=== PATIENT | female | born 2005 | race Hispanic/Latino ===

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

== ENCOUNTER 2025-04-14 02:12 | Emergency (ER) | payer BC, MEDICAID ==
[~2025-04-14] VITALS: Ht 149.9 cm; Wt 48.7 kg
[~2025-04-14 02:12] MED LIST: FAMO-136 PO
--- NOTE | 2025-04-14 02:17 | NUR ---
UA CUP PROVIDED
[2025-04-14 02:58] LABS: IMMATURE GRANULOCYTE ABSOLUTE 0.01 K/uL (0-1); NUCLEATED RED BLOOD CELLS 0.0 % (0.0-0.19); PLATELET COUNT (AUTO) 263 K/uL (130-400); RED BLOOD CELL COUNT(AUTO) 4.28 MIL/uL (4.00-5.50); RED CELL DISTRIBUTION WIDTH 13.9 % (11.0-15.5); WHITE BLOOD COUNT (AUTO) 7.7 K/uL (4.8-10.8)
--- NOTE | 2025-04-14 02:59 | ERN ---
General Chief Complaint: Abdominal Pain Stated Complaint: ABD PAIN Time Seen by MD: 02:17 Source: patient, family History of Present Illness Initial Comments 19-year-old healthy female comes in with emesis x4 associated with chills and pain in her lower abdomen. The pain started a week ago but she comes in today because of intractable vomiting. She states no changes in urination or defecation. Allergies: Coded Allergies: No Known Drug Allergies (Unverified Allergy, Unknown, 05/06/23) Home Meds Active Scripts Famotidine (Pepcid) 20 Mg Tablet, 20 MG PO DAILY, #30 TAB Prov:RAVEN GALDAMEZ MD 05/06/23 Past Medical History Past Medical History: No Pertinent History Past Surgical History: None Family History Family History: Negative Social History Social History: Negative Female( History) LMP: Apr 06, 2025 Constitutional: (+) chills EENTM: (-) eye pain, (-) blurred vision, (-) tearing, (-) double vision, (-) ear pain, (-) ear discharge, (-) nose pain, (-) nose congestion, (-) throat pain, (-) Throat swelling, (-) mouth pain, (-) tooth pain, (-) mouth swelling, (-) other documentation Respiratory: (-) cough, (-) orthopnea, (-) short of breath, (-) stridor, (-) wheezing, (-) other documentation Cardiovascular: (-) chest pain, (-) edema, (-) palpitations, (-) syncope, (-) dyspnea on exertion, (-) other documentation Gastrointestinal/Abdominal: (+) nausea, (+) vomiting Genitourinary: (-) vaginal discharge, (-) vaginal bleeding, (-) dysuria, (-) frequency, (-) hematuria, (-) pain, (-) other documentation Musculoskeletal: (-) Neck pain, (-) back pain, (-) Flank Pain, (-) joint pain, (-) joint swelling, (-) muscle pain, (-) muscle stiffness, (-) gout, (-) other documentation Skin: (-) laceration, (-) contusion, (-) abrasion, (-) abscess, (-) rash, (-) change in color, (-) change in hair, (-) change in nails, (-) diaphoresis, (-) dryness, (-) other documentation Physical Exam General Appearance: (+) no apparent distress Orientation: (+) alert, (+) oriented x 3 Head/Face Trauma: No Eye: bilateral eye normal inspection, bilateral eye PERRL, bilateral eye EOMI Ear, Nose, Throat: (+) hearing grossly normal, (+) normal ENT inspection, (+) moist mucous membraine Neck: (+) normal inspection, (+) supple, (+) full range of motion Respiratory: (+) chest non-tender, (+) lungs clear, (+) well ventilated Heart: (+) regular, (+) no gallop, (+) tachycardia Vascular: (+) no edema, (+) normal peripheral pulse Gastrointestinal: (+) soft, (+) non-tender, (+) bowel sound present Results Laboratory and Microbiology Lab and Micro Result Laboratory Tests Test 04/14/25 02:50 04/14/25 03:46 White Blood Count 7.7 K/uL (4.8-10.8) Red Blood Count 4.28 MIL/uL (4.00-5.50) Hemoglobin 12.7 g/dL (12.0-16.0) Hematocrit 38.5 % (36-48) Mean Corpuscular Volume 90.0 fL (80-100) Mean Corpuscular Hemoglobin 29.7 pg (27.0-33.0) Mean Corpuscular Hemoglobin Concent 33.0 g/dL (32.0-36.0) Red Cell Distribution Width 13.9 % (11.0-15.5) Platelet Count 263 K/uL (130-400) Mean Platelet Volume 10.2 fL (7.5-10.5) Immature Granulocyte % (Auto) 0.1 % (0-1) Neutrophils (%) (Auto) 88.0 % (40.0-77.0) H Lymphocytes (%) (Auto) 5.7 % (21.0-51.0) L Monocytes (%) (Auto) 6.1 % (3.0-13.0) Eosinophils (%) (Auto) 0.0 % (0.0-8.0) Basophils (%) (Auto) 0.1 % (0.0-5.0) Neutrophils # (Auto) 6.8 K/uL (1.8-7.7) Lymphocytes # (Auto) 0.4 K/uL (1.0-4.8) L Monocytes # (Auto) 0.5 K/uL (0.1-1.0) Eosinophils # (Auto) 0.00 K/uL (0.00-0.70) Basophils # (Auto) 0.01 K/uL (0.00-0.20) Absolute Immature Granulocyte (auto 0.01 K/uL (0-1) Nucleated Red Blood Cells 0.0 % (0.0-0.19) White Cell Morphology Comment See comments Sodium Level 137 mmol/L (136-145) Potassium Level 3.4 mmol/L (3.5-5.1) L Chloride Level 102 mmol/L (101-111) Carbon Dioxide Level 27 mmol/L (21-32) Blood Urea Nitrogen 18 mg/dL (7-18) Creatinine 0.7 mg/dL (0.5-1.0) Glomerular Filtration Rate Calc 128 mL/min (>90) Random Glucose 105 mg/dL (70-105) Total Calcium 9.2 mg/dL (8.5-10.1) Lipase 43 U/L (16-77) Urine Color LIGHT-YELLOW (YELLOW) Urine Appearance CLEAR (CLEAR) Urine pH 6.5 (5.0-8.0) Urine Specific [place] 1.028 (1.001-1.031) Urine Protein NEGATIVE mg/dL (NEGATIVE) Urine Glucose (UA) NEGATIVE mg/dL (NEGATIVE) Urine Ketones 20 mg/dL (NEGATIVE) H Urine Occult Blood NEGATIVE (NEGATIVE) Urine Nitrate NEGATIVE (NEGATIVE) Urine Bilirubin NEGATIVE mg/dL (NEGATIVE) Urine Urobilinogen 0.2 mg/dL (0.2-1.0) Urine Leukocyte Esterase NEGATIVE [place]/uL Urine RBC 2-5 /HPF (0-1) H Urine WBC 2-5 /HPF (0-1) H Urine Squamous Epithelial Cells FEW /HPF (0-2) Urine Bacteria None /HPF (None Seen) Urine HCG, Qualitative NEGATIVE (NEGATIVE) MDM MDM: Differential diagnosis: UTI, , dehydration, gastroenteritis, food allergy Rationale: Tests considered and ordered secondary to shared decision making include: Previous outside records reviewed: Old ER visits. Risk of complication and/or morbidity or mortality of patient management: None Medications-Per medication reconciliation Need for hospitalization: Patient does meet criteria for hospitalization. Need for emergency major/minor surgery: No There are no social concerns with this patient. Prescription drug management Prescriptions will include symptomatic care Patient's prior external medical records from other ER visits were reviewed by me as indicated. Prior testing and results from previous visits were reviewed. Prior tests were taken into account with medical decision making and resource utilization, independent historian/historians were used to obtain complete medical history. I independently interpreted the test that were performed, results were reviewed by me and considered findings on radiology if ordered. Part of patient's symptoms improved with the GI cocktail. Her laboratory analysis shows a normal chemistry panel and a normal CBC. Her urine had ketones in it but was otherwise normal. I suspect she has a combination of dehydration as well as gastritis. ED Course Orders Procedure Category Date Status Time Vital Signs Per CPOE 04/14/25 Transmitted Routine 02:21 Saline Lock Iv CPOE 04/14/25 Transmitted 02:21 Cbc With Differential LAB 04/14/25 Complete 02:21 Lipase LAB 04/14/25 Complete 02:21 Urinalysis Profile LAB 04/14/25 Complete 02:21 Basic Metabolic Panel LAB 04/14/25 Complete 02:21 ,Urine Test LAB 04/14/25 Complete 02:21 Ondansetron 4mg Inj PHA 04/14/25 Complete (Zofran 4mg Inj) 03:00 Lactated Ringers PHA 04/14/25 Complete 1000ml (Lactated 02:53 Lidocaine Hcl 2% PHA 04/14/25 Complete Viscous (Lidocaine Hcl 03:00 Mag/Alum/Simeth 30ml PHA 04/14/25 Complete (Maalox Plus 30ml) 03:00 Dicyclomine Hcl PHA 04/14/25 Complete (Bentyl 10mg/5ml 03:00 Current Medications Medications (Trade) Dose Ordered Sig/Saundra Route PRN Reason Start Time Stop Time Status Last Admin Dose Admin Al Hydroxide/Mg Hydroxide (MAALox PLUS 30ML) 30 ml ONCE ONCE PO 04/14/25 03:00 04/14/25 03:01 DC 04/14/25 03:28 Dicyclomine HCl (Bentyl 10mg/5ml Syrup) 10 mg ONCE ONCE PO 04/14/25 03:00 04/14/25 03:01 DC 04/14/25 03:28 Lactated Ringer's (Lactated Ringers 1000ml) 1,000 ml BOLUS STAT IV 04/14/25 02:53 04/14/25 02:55 DC 04/14/25 03:20 Lidocaine HCl (Lidocaine HCl 2% Viscous) 10 ml ONCE ONCE PO 04/14/25 03:00 04/14/25 03:01 DC 04/14/25 03:28 Ondansetron HCl (zoFRAN 4MG INJ) 4 mg ONCE ONCE IVP 04/14/25 03:00 04/14/25 03:01 DC 04/14/25 03:28 Vital Signs Date Time Temp Pulse Resp B/P (MAP) Pulse Ox O2 Delivery O2 Flow Rate FiO2 04/14/25 02:52 98.8 77 18 143/66 99 Room Air* 0 21 04/14/25 02:13 98.8 109 18 113/62 100 Room Air DX & DISP Disposition: Discharge Departure Impression: Primary Impression: Gastritis Additional Impressions: Nausea, Dehydration, Ketonuria Condition: Stable Additional Instructions: I suspect your have a combination of gastritis and dehydration. The gastritis can be treated with [id number] medications such as Pepcid or omeprazole. I recommend starting with Pepcid. Please follow-up with her family care doctor if the Pepcid does not relieved her gastritis. You should start feeling better with the fluids I have given you. If you continue to have nausea and vomiting please follow-up with your primary care physician. In his hot [place] whether it is important to stay well hydrated. Please drink enough fluid every day so that your urine runs clear at least once a day. Referrals: TETE THOMAS (PCP) IOANA SHEFFIELD MD Apr 14, 2025 02:59
[2025-04-14 03:14] LABS: CREATININE 0.7 mg/dL (0.5-1.0); GLOMERULAR FILTR. RATE CALC 128.0 mL/min (>90); GLUCOSE,RANDOM 105.0 mg/dL (70-105); SODIUM SERUM 137.0 mmol/L (136-145); UREA NITROGEN, BLOOD 18.0 mg/dL (7-18)
[2025-04-14] MEDS: LACTATED RINGERS 1000ML IV STA (03:20)
[2025-04-14] MEDS: DICYCLOMINE HCL 10 MG/5 ML ML PO ONE (03:28)
[2025-04-14] MEDS: MAG/ALUM/SIMETH 30 ML UDCUP PO ONE (03:28)
[2025-04-14] MEDS: LIDOCAINE HCL 2% VISCOUS 15 ML UDCUP PO ONE (03:28)
[2025-04-14 03:55] LABS: APPEARANCE,URINE CLEAR (CLEAR); GLUCOSE, URINE (UA) NEGATIVE (NEGATIVE); LEUKOCYTE ESTERASE ,URINE NEGATIVE Leu/uL (NEGATIVE); NITRATE,URINE NEGATIVE (NEGATIVE); OCCULT BLOOD,URINE NEGATIVE (NEGATIVE)
[2025-04-14 04:00] LABS: ADD UA MICROSCOPIC YES
[2025-04-14 04:04] LABS: SQUAMOUS EPITHELIAL CELL,UR FEW /HPF (0-2)
[2025-04-14 04:15] LABS: HCG,QUALITATIVE URINE NEGATIVE (NEGATIVE)
[2025-04-14 04:52] VITALS: BP 125/65; PULSE 75; RESP 18; TEMP 98.8; O2SAT 100
== END 2025-04-14 04:53 | disposition home or self-care (01) ==
LOC: EDH 02:12
DX: K29.70 Gastritis, unspecified, without bleeding (principal); R11.0 Nausea; E86.0 Dehydration; R82.4 Acetonuria
CPT/HCPCS: 99284; 96374; 80048; 83690; 85025; 81001; 81025; 36415; J7120; J2405

== ENCOUNTER 2025-06-13 17:23 | Emergency (ER) | payer OTHER, BC ==
[~2025-06-13] VITALS: Ht 147.3 cm; Wt 44.5 kg
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
--- NOTE | 2025-06-13 18:16 | NUR ---
PT JUST RETURNED FROM CT SCAN.
--- NOTE | 2025-06-13 18:26 | NUR ---
PT REFUSED TO TAKE THE TYELNOL HERE STATING SHE WOULD TAKE IT AT HOME
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
[2025-06-13] MEDS ORDERED: KETO10TA2 PO (19:31)
[2025-06-13] MEDS ORDERED: METH-662 PO (19:31)
[2025-06-13 20:20] VITALS: BP 114/68; PULSE 72; RESP 16; TEMP 97.8; O2SAT 100
== END 2025-06-13 20:22 | disposition home or self-care (01) ==
LOC: EDH 17:23
DX: S16.1XXA Strain of muscle, fascia and tendon at neck level, initial encounter (principal); S39.012A Strain of muscle, fascia and tendon of lower back, initial encounter; V89.2XXA Person injured in unspecified motor-vehicle accident, traffic, initial encounter; Y93.89 Activity, other specified; Y92.89 Other specified places as the place of occurrence of the external cause; Y99.8 Other external cause status
CPT/HCPCS: 70450; 72125; 72131; 99284

== ENCOUNTER 2025-06-15 20:28 | Emergency (ER) | payer BC, OTHER ==
[~2025-06-15] VITALS: Ht 147.3 cm; Wt 45.8 kg
[~2025-06-15 20:28] MED LIST changes: +KETO10TA2 PO; +METH-662 PO
[2025-06-15 20:49] LABS: APPEARANCE,URINE CLEAR (CLEAR); GLUCOSE, URINE (UA) NEGATIVE (NEGATIVE); LEUKOCYTE ESTERASE ,URINE 75 Leu/uL (NEGATIVE); NITRATE,URINE NEGATIVE (NEGATIVE); OCCULT BLOOD,URINE LARGE (NEGATIVE)
[2025-06-15 20:51] LABS: ADD UA MICROSCOPIC YES
[2025-06-15 20:54] LABS: SQUAMOUS EPITHELIAL CELL,UR RARE /HPF (0-2)
[2025-06-15 20:56] LABS: HCG,QUALITATIVE URINE NEGATIVE (NEGATIVE)
[2025-06-15] MEDS ORDERED: DOXY100C5 PO (21:07)
[2025-06-15] MEDS ORDERED: ACYC-429 PO (21:07)
--- NOTE | 2025-06-15 21:07 | ERN ---
ED Note History of Present Illness Stated Complaint: C/O PAIN WHEN VOIDING Chief Complaint: Painful Urination Time Seen by MD: 20:34 Time Seen by Midlevel: 20:34 Dictation: The patient is a 20-year-old female with no significant medical history who pre sents to the emergency department with complains of multiple vaginal wounds onset today. Patient reports burning sensation. Denies any vaginal discharge. Reports unprotected sex 3 weeks ago. Denies any other complains. Allergies: Coded Allergies: No Known Drug Allergies (Unverified Allergy, Unknown, 05/06/23) Home Meds Active Scripts Doxycycline Hyclate (Doxycycline Hyclate) 100 Mg Capsule, 1 CAP PO BID for 7 Days, #14 CAP 0 Refills Prov:RAMON TAFOYA [facility] 06/15/25 Acyclovir (Acyclovir) 400 Mg Tablet, 1 TAB PO TID for 10 Days, #30 TAB 0 Refills Prov:RAMON TAFOYA [facility] 06/15/25 Ketorolac Tromethamine (Ketorolac Tromethamine) 10 Mg Tablet, 1 TAB PO TID for pain for 5 Days, #15 TAB 0 Refills Prov:REY MORENO [facility] 06/13/25 Methocarbamol (Robaxin) 750 Mg Tab, 1 TAB PO BID for 10 Days, #20 TAB 0 Refills Prov:REY MORENO [facility] 06/13/25 Famotidine (Pepcid) 20 Mg Tablet, 20 MG PO DAILY, #30 TAB Prov:RAVEN GALDAMEZ MD 05/06/23 Past Medical History Past Medical History: No Pertinent History Surgical History: None Family History: Negative Social History: Negative RN Note Reviewed/Agreed w/PFSH: Yes Review of System Dictation Constitutional: Negative for fever,chills, and weight loss Eyes: Negative for injury, pain,redness, and discharge ENT: Negative for injury,pain or swelling Cardiovascular: Negative for chest pain, palpitations, and edema Respiratory: Negative for shortness of breath, cough, and wheezing, Abdomen/GI: Negative for abdominal pain, nausea, vomiting, diarrhea, and co nstipation Back: Negative for injury and pain : positive for vaginal wounds MS/Extremity: Negative for injury and deformity Skin: Negative for rash, and discoloration Neuro: Negative for headache, weakness, numbness, tingling, and seizure Psych: Negative for suicide ideation, homicidal ideation, and hallucinations Initial Vital Sign VS Vital Signs Date Time Temp Pulse Resp B/P (MAP) Pulse Ox O2 Delivery O2 Flow Rate FiO2 06/15/25 20:30 98.4 75 18 133/83 98 Room Air 06/15/25 21:28 0 21 Physical Exam Dictation Vital Signs reviewed General Appearance: Alert, oriented x 3, no acute distress, well developed, nourished. Head and Face: non-traumatic. Eyes: PERRL, pink conjunctivas, eyelid no trauma, anterior chamber with arcus senilis. Ears: Pinnas intact and no signs of trauma or erythema ear canals clear and no discharge TM no erythema Nose: No discharge, no bleeding. Oropharynx: Mouth normal, tongue pink. pharynx clear,no erythema, tonsils no exudates, no abscesses noted, mucous membrane moist Neck: Supple, non-tender, no thyromegaly, no masses, no JVD, no bruits Breast:Deferred Chest:No tenderness, no crepitus, no paradoxical movement, no retractions Lungs:Clear, well-ventilated, symmetric, no rales, no wheezing, no rhonchi, no stridor, good breath sounds bilaterally Heart: Regular rate, regular rhythm, no murmur, no gallops Vascular: no peripheral edema, Abdomen: Soft, positive bowel sounds, nondistended, no guarding, nontender, no rebound, no masses no hepatomegaly, no splenomegaly, no Jackson's sign, no hernias. Rectal: Deferred Genital: multiple rounded lesions to bilateral labial, no drainage. Neurological: Normal speech, motor function intact, sensory function intact Musculoskeletal: Neck nontender, full range of motion, back nontender, full range of motion, Extremities: nontender, full range of motion Skin: Color pink, dry, no turgor, no rash, no lacerations, no abrasions, no contusions. Lymphatic: Deferred Results (Laboratory/Radiology) Laboratory/Radiology Laboratory Tests Test 06/15/25 20:32 Urine Color YELLOW (YELLOW) Urine Appearance CLEAR (CLEAR) Urine pH 6.0 (5.0-8.0) Urine Specific [place] 1.024 (1.001-1.031) Urine Protein 10 mg/dL (NEGATIVE) H Urine Glucose (UA) NEGATIVE mg/dL (NEGATIVE) Urine Ketones 20 mg/dL (NEGATIVE) H Urine Occult Blood LARGE (NEGATIVE) H Urine Nitrate NEGATIVE (NEGATIVE) Urine Bilirubin NEGATIVE mg/dL (NEGATIVE) Urine Urobilinogen 0.2 mg/dL (0.2-1.0) Urine Leukocyte Esterase 75 [place]/uL (NEGATIVE) H Urine RBC TNTC /HPF (0-1) H Urine WBC 11-25 /HPF (0-1) H Urine Squamous Epithelial Cells RARE /HPF (0-2) Urine Bacteria RARE /HPF (None Seen) Urine HCG, Qualitative NEGATIVE (NEGATIVE) Labs Reviewed?: Yes ED Course ED Course Orders Procedure Category Date Status Time Urinalysis Profile LAB 06/15/25 Complete 20:35 ,Urine Test LAB 06/15/25 Complete 20:35 Culture Urine JAMES 06/15/25 In Process 20:51 Chlamydia & Gc Pcr JAMES 06/15/25 In Process 21:00 Ceftriaxone 1g Vial PHA 06/15/25 Complete (Rocephine 1g Inj) 21:00 Acyclovir 200 Mg PHA 06/15/25 Complete Capsule (Zovirax 200mg 21:00 Current Medications Medications (Trade) Dose Ordered Sig/Saundra Route PRN Reason Start Time Stop Time Status Last Admin Dose Admin Acyclovir (Zovirax 200mg Cap) 400 mg ONCE ONCE PO 06/15/25 21:00 06/15/25 21:06 DC 06/15/25 21:22 Ceftriaxone Sodium (ROCEphine 1G INJ) 1 gm ONCE ONCE IM 06/15/25 21:00 06/15/25 21:07 DC 06/15/25 21:22 Vital Signs Date Time Temp Pulse Resp B/P (MAP) Pulse Ox O2 Delivery O2 Flow Rate FiO2 06/15/25 21:28 98.4 75 18 133/83 98 Room Air* 0 21 06/15/25 20:30 98.4 75 18 133/83 98 Room Air Medical Decision Making MDM The patient is a 20-year-old female with no significant medical history who presents to the emergency department with complains of multiple vaginal wounds onset today. Patient reports burning sensation. Denies any vaginal discharge. Reports unprotected sex 3 weeks ago. Denies any other complains. Patient symptoms consistent with herpes. Patient will be treated with antiviral. Pending urine cultures. Patient otherwise in no acute distress, non toxic appearance. Differential diagnosis:uti, std, herpes Need for hospitalization: Patient does not meet criteria for hospitalization. There are no social concerns with this patient. DX & DISP Disposition: Discharge Departure Impression: Primary Impression: Herpes simplex Additional Impression: STD exposure Condition: Stable Scripts Doxycycline Hyclate (Doxycycline Hyclate) 100 Mg Capsule 1 CAP PO BID for 7 Days, #14 CAP 0 Refills Prov: RAMON TAFOYA [facility] 06/15/25 Acyclovir (Acyclovir) 400 Mg Tablet 1 TAB PO TID for 10 Days, #30 TAB 0 Refills Prov: RAMON TAFOYA RN [facility] 06/15/25 Additional Instructions: Please take your antibiotics as prescribe. Follow up with your pcp in 1-2 days for full std workup. Follow up on cultures in about 3 days. Avoid any sexual activity until symptoms resolve. FOLLOW-UP WITH PRIMARY CARE PROVIDER IN 1 TO 2 DAYS. TAKE MEDICATIONS DIRECTED HERE IN THE EMERGENCY ROOM. OKAY TO CONTINUE HOME MEDICATIONS UNLESS OTHERWISE DISCUSSED DURING YOUR VISIT IN THE EMERGENCY ROOM TODAY. RETURN TO YOUR NEAREST EMERGENCY ROOM IF SYMPTOMS WORSEN OR IF THERE IS NO IMPROVEMENT. CALL 911 IF YOU NEED IMMEDIATE ASSISTANCE. TAKE TYLENOL [id number] NEEDED AND IF NO CONTRAINDICATIONS ARE PRESENT. INCREASE ORAL HYDRATION. A WOUND CULTURE OR URINE CULTURE WAS ORDERED HERE IN THE EMERGENCY ROOM DEPARTMENT PLEASE FOLLOW-UP WITH PRIMARY CARE PROVIDER AND ADVISE THEM TO GET REPEAT PORTS FROM OUR FACILITY. IF YOU HAD ANY JUHI WRAP/SPLINTS THAT WERE APPLIED HERE, PLEASE DO NOT REMOVE THEM UNTIL YOU SEE YOUR PRIMARY CARE OR SPECIALTY. Referrals: SELF,REFERRAL (PCP) Time of Disposition: 21:07 I have reviewed the case, and I agree with, Diagnosis and Plan REYNA TAFOYACASANDRA BOSWELL Jun 15, 2025 21:07
[2025-06-15] MEDS: ACYCLOVIR 200 MG CAPSULE PO ONE (21:22)
[2025-06-15 21:28] VITALS: BP 133/83; PULSE 75; RESP 18; TEMP 98.5; O2SAT 98
== END 2025-06-15 21:46 | disposition home or self-care (01) ==
LOC: EDH 20:28
DX: B00.9 Herpesviral infection, unspecified (principal); Z20.2 Contact with and (suspected) exposure to infections with a predominantly sexual mode of transmission; Z79.624 Long term (current) use of inhibitors of nucleotide synthesis; Z79.899 Other long term (current) drug therapy
CPT/HCPCS: 99284; 87086; 87491; 87591; 81001; 81025; 96372; J0696